=== PATIENT | female | born 1955 | race Two or more races ===

== ENCOUNTER 2024-03-03 21:50 | Emergency (ER) | payer OTHER, MEDICAID ==
[~2024-03-03] VITALS: Ht 157.5 cm; Wt 63.7 kg
[2024-03-03 22:04] VITALS: BP 152/91; PULSE 106; RESP 16; O2SAT 92
== END 2024-03-04 01:13 | disposition left against medical advice (07) ==
LOC: ER 21:50
DX: R53.1 Weakness (principal); Z53.21 Procedure and treatment not carried out due to patient leaving prior to being seen by health care provider
CPT/HCPCS: 93005; J7030